=== PATIENT | male | born 1995 | race Caucasian/White ===

== ENCOUNTER 2018-01-29 11:20 | Emergency (ER) | payer SELFPAY ==
[2018-01-29 11:35] VITALS: BP 143/76
[2018-01-29] MEDS ORDERED: DEXAMETHASONE 4 MG TABLET PO ONE (11:41)
[2018-01-29] MEDS ORDERED: PENICILLIN G BENZATHINE 1.2 MILLION UNIT/2 ML DISP.SYRIN IM ONE (11:41)
[2018-01-29] MEDS ORDERED: IBUPROFEN 800 MG TABLET PO ONE (11:41)
--- NOTE | 2018-01-29 11:43 | ER Document Report ---
HPI - HPI Patient complains to provider of: Sore throat Onset: Other - 4 days Onset/Duration: Persistent Pain Level: 4 Context: Patient presents complaining of sore throat for the past 4 days. Patient states that initially he had headache fever with nausea but those symptoms have resolved. Patient complains of persistent throat pain. Patient able to swallow without difficulty. Associated Symptoms: Sore throat. denies: Earache, Fever Exacerbated by: Denies Relieved by: Denies Similar symptoms previously: Yes Recently seen / treated by doctor: No - ROS ROS below otherwise negative: Yes Systems Reviewed and Negative: Yes All other systems reviewed and negative - CONSTITUTIONAL Constitutional: DENIES: Fever - EENT EENT: REPORTS: Sore Throat - NEURO Neurology: DENIES: Headache - RESPIRATORY Respiratory: DENIES: Coughing - GASTROINTESTINAL Gastrointestinal: DENIES: Abdominal Pain, Nausea, Patient vomiting - MUSCULOSKELETAL Musculoskeletal: DENIES: Neck Pain - DERM Skin Color: Normal Skin Problems: None Past Medical History - General Information source: Patient - Social History Smoking Status: Current Every Day Smoker Smoking Education Provided: Yes Frequency of alcohol use: None Drug Abuse: None Occupation: None Lives with: Family Family History: None - Medical History Medical History: Negative Past Surgical History: Reports: Hx Oral Surgery - wisdom teeth - Immunizations Hx Diphtheria, Pertussis, Tetanus Vaccination: Yes Vertical Provider Document - CONSTITUTIONAL Agree With Documented VS: Yes Exam Limitations: No Limitations General Appearance: WD/WN, No Apparent Distress - INFECTION CONTROL TRAVEL OUTSIDE OF THE [place] IN LAST 30 DAYS: No - HEENT HEENT: Atraumatic, Normocephalic, Pharyngeal Tenderness, Pharyngeal Erythema. 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 Patient able to manage oral secretions. Good return precautions provided. - Vital Signs Vital signs: Temp Pulse Resp BP Pulse Ox 97.7 F 64 18 143/76 H 97 01/29/18 11:29 01/29/18 11:29 01/29/18 11:29 01/29/18 11:29 01/29/18 11:29 Discharge - Discharge Clinical Impression: Tonsillitis Condition: Stable Disposition: HOME, SELF-CARE Instructions: Corticosteroid Medication ([facility]), Use of [id number] Ibuprofen ([facility]), Tonsillitis ([facility]) Additional Instructions: Return immediately for any new or worsening symptoms Followup with your primary care provider, call tomorrow to make a followup appointment Take Motrin [id number] to help with throat discomfort Stay well-hydrated Forms: Smoking Cessation Education Referrals: [facility] [Provider Group] - Follow up as needed
== END 2018-01-29 12:04 | disposition home or self-care (01) ==
LOC: ER 11:20
DX: J03.90 Acute tonsillitis, unspecified (principal); F17.200 Nicotine dependence, unspecified, uncomplicated
CPT/HCPCS: 99282; 96372; J0561